=== PATIENT | male | born 1950 | race Caucasian/White ===

== ENCOUNTER 2024-03-08 00:30 | Day surgery (SDC) | payer MEDICARE, SELFPAY ==
--- NOTE | 2024-03-05 13:40 | PC.NURSE ---
Report to the Outpatient Waiting Room, entrance under the green pavilion located off [facility], at time ___0830____ on date _03/08/24 . Planned Procedure Time: _1030 . Time changes happen often and if your time is changed the preop area will call you the afternoon before. - You and your visitor will be asked to self-screen and do not enter if you have any COVID symptoms. - A mask is optional within the hospital at this time. Patients may have clear liquids (water, carbonated beverages, clear teas, apple juice) until 3 hours prior to surgery( 7:30AM) with a maximum of 20 ounces. - No food from midnight until time of surgery - Infants may have breast milk until 4 hours before surgery, infant formula 6 hours prior to surgery. - Children will be allowed to drink immediately following surgery. If applicable, please bring a bottle or sippy cup to assist with drinking. Juice, water, soda, and popsicles are readily available. For infants on formula, please bring formula the day of surgery. Pacifiers are allowed. Take the following medications with a SIP of water the morning of surgery: NONE DO NOT STOP ANY OF YOUR OTHER PRESCRIPTION MEDICATIONS PRIOR TO SURGERY ?EXCEPT THE FOLLOWING Medications to discontinue per physician NONE Please no make-up, nail greenlandic, hairspray, perfume, deodorant, or body powder the day of surgery. No jewelry (including any body piercings) or valuables the day of surgery, leave them at home. Please take a shower or bath the night before, or the morning of, surgery with an antibacterial soap. Wear comfortable, loose fitting clothing. Children are encouraged to wear pajamas. - Jewelry must be removed prior to entering the operating room. Rings and piercings that are not removed may be cut off. - The hospital will not accept responsibility for valuables. - Please leave all valuables, including medications, at home the day of surgery. If you are going home after surgery, a licensed stake driver must drive you home. - NO public transportation without another adult if you receive anesthesia. - We recommend that an adult stay with you for 24 hours following discharge. - We also recommend that you do not drive, make important decision, drink alcoholic beverages, or take any drugs that were not prescribed by your health care provider for at least 24 hours after your discharge Follow any additional instructions given to you from your surgeon. If you or anyone in your household have experienced Covid symptoms in the past week, please notify your surgeon or the nurse liaison at the phone number below for possible testing. Telephone instructions given to ___PATIENT and asked if any additional questions and then verbalized understanding. Patient advised to call surgeon office or pre surgery nurse liaison [phone] if any additional questions.
[2024-03-05 13:43] VITALS: BMI 27.7
[2024-03-08] VITALS (7 sets, daily range): BP systolic 116–149; BP diastolic 66–85; PULSE 40–59; RESP 11–17; TEMP 36.1–36.6; O2SAT 97–100
--- NOTE | ~2024-03-08 | XR_ITS ---
EXAMINATION: XR retrograde pyelo w/stent LT DATE: 03/08/2024 10:56 INDICATION: Left ureteral stone. TECHNIQUE: 44 intraoperative fluoroscopic views of the abdomen and pelvis were obtained. I was not pr esent. Fluoroscopy exposure time was 76 seconds. COMPARISON: None. FINDINGS: The left-sided retrograde pyelogram is unremarkable. The final images demonstrate a left in ternal ureteral stent in expected position. IMPRESSION: 1. Left internal ureteral stent in expected position. Reviewed, dictated and finalized at location A.
--- NOTE | 2024-03-08 06:28 | WPDHPUPDATE1 ---
History and Physical Update Update Date/Time: 03/08/24 06:28 History and Physical has been reviewed, including an updated exam of the patient. There are NO changes in the patient's condition. Risks, benefits, and alternatives have been discussed and questions answered. Patient agrees to proceed with procedure.
--- NOTE | 2024-03-08 09:23 | P.PNAN_ITS ---
Anes - Initial Pre Proc Eval Procedure: Operation Date: 03/08/24 10:30 Proposed Procedures p Cystoscopy, Left Ureteroscopy, Left Retrograde Pyelogram, Possible Left Stone Extraction, Possible Left Stent Placement, Possible Holmium Laser Procedure - Jacob Mancilla MD Date/Time: 03/08/24 09:23 Surgeon: Jacob Mancilla MD Pre Op Diagnosis: left renal stone Patient Data Age: 73 Gender: M Height: 1.74 m Weight: 83.95 kg Allergies Allergy/AdvReac Type Severity Reaction Status Date / Time iodine Allergy Unknown TOPICAL - Verified 03/08/24 09:34 HIVES Home Medications Medication Instructions Recorded Confirmed Type No Home Medications 03/05/24 03/05/24 History Patient hx anesthesia problems: none Family hx anesthesia problems: none Results Review: All pre-operative results and documents have been reviewed as part of the pre- operative evaluation. [facility] Family History Family History Mother Family history of malignant neoplasm Father Family history of malignant neoplasm Other Diabetes mellitus Social History Social History Smoking status: Never smoker Alcohol intake: current Drinks per week: 4 Living arrangements: with family Spiritual care concerns: No Anes - Eval Final PreProcedure Day of Procedure 03/08/24 09:23 Patient weight: normal Heart: regular rate and rhythm Lungs: clear to auscultation Airway: Mallampati scale class II and special considerations (Missing lower back tooth. ) Neurological: alert and oriented Last oral intake: >/= 8 hours ASA classification: II Emergent: no Anesthetic plan: proceed Anesthesia type and monitoring: general LMA and standard monitoring Results Review: All pre-operative results and documents have been reviewed as part of the pre- operative evaluation. Informed Consent: The patient's anesthetic plan and its attendant risks and benefits were discussed with the patient/family/POA. Questions were solicited and answers provided to the satisfaction of the patient/family/POA.
[2024-03-08] MEDS: LACTATED RINGERS 1,000 ML 30 ML IV CONT (09:33)
--- NOTE | 2024-03-08 10:49 | W.PM.PROC2 ---
Procedure Note - Detailed Date of Procedure 03/08/24 Pre-op Diagnosis left renal stone Post-op Diagnosis Same Procedure Performed cystoscopy, left ureteroscopy, left retrograde pyelography, left laser lithotripsy with stone extraction and left ureteral stent placement Surgeon Jacob Mancilla MD Anesthesia General Description of Procedure Patient is brought to the operative suite where he was prepped and draped in routine sterile fashion while in dorsal lithotomy position after the uneventful induction of a general LMA anesthetic. Cystoscopy was undertaken with a 19 F rigid cystoscope. 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 Bladder mucosa is normal the hyperemia. There was no intravesical foreign body or neoplasm. He has a single orthotopic ureteral orifice bilaterally. 0.035 in glidewire was advanced in left renal pelvis and the distal ureter was dilated with an 8 F 10 F dilator. Ureteroscopy undertaken with the 7.5 F flexible ureteral scope is a stone in a midpole calyx. Exclude 2 stones in the smaller which can be removed with basket ( 1.9 F 0 tipped disposable stone basket. The 2nd stone I lasered into pieces 2 mm or smaller. The larger pieces were extracted with a disposable stone basket. I did place a 4.8 F variable length left ureteral stent with the proximal coil in the renal pelvis and distal coil in the bladder. Scopes and wires were removed he was taken to the recovery room good condition Pathology Yes Complications No immediate complications Condition Stable Disposition PACU
== END 2024-03-08 12:28 | disposition home or self-care (01) ==
PROVIDERS: Visit Provider Urology
PROC: (CPT 52352; principal; 2024-03-08 10:30)
DX: N20.0 Calculus of kidney (principal); N32.81 Overactive bladder; E29.1 Testicular hypofunction; N39.3 Stress incontinence (female) (male); N50.0 Atrophy of testis; R31.29 Other microscopic hematuria; Z85.46 Personal history of malignant neoplasm of prostate; Z80.1 Family history of malignant neoplasm of trachea, bronchus and lung
CPT/HCPCS: 52356; 74420; 82365; 88300; C1769; C2617; J2405; J2704; J7120; Q9966